=== PATIENT | female | born 1990 | race Caucasian/White ===

== ENCOUNTER 2021-09-16 07:02 | Day surgery (SDC) | payer MEDICAID ==
[~2021-09-16] VITALS: Ht 170.2 cm; Wt 81.6 kg
[2021-09-16 07:59] LABS: BASOPHILS % (AUTO) 0.4 % (0.0-2.0); EOSINOPHILS # (AUTO) 0.3 K/uL (0-0.4); EOSINOPHILS % (AUTO) 3.8 % (0.0-4.0); HEMATOCRIT 41.2 % (36-48); LYMPHOCYTES # (AUTO) 2.4 K/uL (2.5-16.5); LYMPHOCYTES % (AUTO) 35.5 % (20.5-51.1); MEAN CORPUSCULAR HEMOGLOBIN 30 pg (27-31); MEAN CORPUSCULAR HGB CONC 34 g/dL (33-37); MEAN CORPUSCULAR VOLUME 87.1 fL (80-94); MONOCYTES # (AUTO) 0.4 K/uL (0.8-1.0); MONOCYTES % (AUTO) 5.5 % (1.7-9.3); NEUTROPHILS # (AUTO) 3.7 K/uL (1.8-7.7); NEUTROPHILS % (AUTO) 54.8 % (42.2-75.2); PLATELET COUNT (AUTO) 212 K/uL (140-450); RED BLOOD CELL COUNT(AUTO) 4.73 MIL/uL (4.20-5.40); RED CELL DISTRIBUTION WIDTH 14.5 % (11.6-13.7); WHITE BLOOD COUNT (AUTO) 6.7 K/uL (4.8-10.8)
[2021-09-16 08:03] LABS: ALBUMIN 3.7 g/dL (3.4-5.0); CREATININE 0.8 mg/dL (0.6-1.3); TOTAL BILIRUBIN 0.5 mg/dL (0.0-1.0)
[2021-09-16] MEDS ORDERED: BUPIVACAINE-MPF 0.25% 30 ML VIAL INJ ONE (10:40)
[2021-09-16] MEDS ORDERED: LIDOCAINE MPF 1% 5 ML ONE (10:43)
[2021-09-16] MEDS ORDERED: ceFAZolin 1,000 MG VIAL ONE ×2 (10:44→10:46)
[2021-09-16] MEDS ORDERED: DESFLURANE 240 ML BTL INH ONE ×2 (10:54)
[2021-09-16] MEDS ORDERED: fentaNYL citrate 0.05 MG/ML VIAL ONE (10:59)
[2021-09-16] MEDS ORDERED: KETOROLAC 30 MG/ML VIAL ONE (11:02)
[2021-09-16] MEDS ORDERED: PROPOFOL 200 MG/20 ML VIAL IV ONE (11:02)
[2021-09-16] MEDS ORDERED: ONDANSETRON 4 MG/2 ML VIAL ONE (11:02)
[2021-09-16] MEDS ORDERED: MORPHINE SULFATE 4 MG/ML SYR IV PRN (12:50)
[2021-09-16] MEDS ORDERED: ONDANSETRON 4 MG/2 ML VIAL IV PRN (12:50)
[2021-09-16] MEDS ORDERED: MORPHINE SULFATE 2 MG/ML SYR IVP PRN (12:50)
[2021-09-16] MEDS ORDERED: HYDROmorphone 1 MG/ML AMP IVP PRN (12:50)
[2021-09-16] MEDS ORDERED: HYDROcodone/APAP 5/325 MG 1 TAB TAB PO PRN (12:50)
[2021-09-16] MEDS ORDERED: ACET-8386 PO (14:06)
== END 2021-09-16 14:25 | disposition home or self-care (01) ==
LOC: MDS 07:02 → MMU 07:04 → MDS 14:25
PROVIDERS: ATTEND Surgery
DX: C50.912 Malignant neoplasm of unspecified site of left female breast (principal); C79.89 Secondary malignant neoplasm of other specified sites; N63.25 Unspecified lump in the left breast, overlapping quadrants; Z20.822 Contact with and (suspected) exposure to COVID-19; Z90.49 Acquired absence of other specified parts of digestive tract; Z79.899 Other long term (current) drug therapy
CPT/HCPCS: 36415; 36561; 71045; 76000; 80053; 81025; 85025; 86886; 86900; 86901; 87426; C1788; J0690; J1644; J1885; J2001; J2405; J2704; J3010; J3490; J7030; J7060; Q0092; 77003